=== PATIENT | male | born 1965 | race Caucasian/White ===

== ENCOUNTER 2022-12-10 06:44 | Day surgery (SDC) | payer MEDICAID ==
[~2022-12-10] VITALS: Ht 177.8 cm; Wt 93.0 kg
[2022-12-10] MEDS ORDERED: MIDAZOLAM HCL 5 MG/5 ML VIAL ONE (07:21)
[2022-12-10] MEDS ORDERED: MEPERIDINE 100 MG INJ. 100 MG/ML VIAL ONE (07:21)
[2022-12-10 08:14] VITALS: O2SAT 97
[2022-12-10 09:25] VITALS: BP_SYST 108; PULSE 66; RESP 14
== END 2022-12-10 09:30 | disposition home or self-care (01) ==
LOC: SDS 06:44 → SMU 06:45 → SDS 09:30
PROVIDERS: ATTEND Internal Medicine Gastroenterology
DX: Z12.11 Encounter for screening for malignant neoplasm of colon (principal); K63.5 Polyp of colon; Z86.010 Personal history of colon polyps; K57.30 Diverticulosis of large intestine without perforation or abscess without bleeding; K64.9 Unspecified hemorrhoids; F32.A Depression, unspecified; Z87.891 Personal history of nicotine dependence; Z79.899 Other long term (current) drug therapy
CPT/HCPCS: 45385; 96365; 99152; 88305; G0378; J2250; J2175